=== PATIENT | female | born 1935 | race Caucasian/White ===

== ENCOUNTER 2016-12-11 09:16 | Emergency (ER) | payer MEDICARE, BC ==
--- NOTE | ~2016-12-11 | ER ---
PATIENT'S NAME: POLLY [facility] AGE: 81 Y [address] ROOM: [place] [address] LOCATION: [facility] ADMIT DATE: 12/11/2016 ER/Outpatient Report DISCHARGE DATE: 12/11/2016 FAMILY PHYSICIAN: Coleman Yeh MD ATTENDING PHYSICIAN: David Muse CHIEF COMPLAINT: Balance issues. HISTORY OF PRESENT ILLNESS: Ms. Matias presents with her sister and daughter. She has noted to have been having more balance issues of late. Last night, she was trying to sit down on bed after using the restroom, and her feet continued to slide out from under her. She was sitting on the edge of the bed causing her to slowly sink to the floor. She denies any pain or difficulty walking after that. She has no complaints at this time. She is not concerned. She came in only because when her family urged her to contact the clinic, they recommended ER evaluation. No other concerns at this time, and the patient wants nothing done. PAST MEDICAL HISTORY: Documented on the record and reviewed by me. SOCIAL HISTORY: Documented on the record and reviewed by me. MEDICATIONS: Documented on the record and reviewed by me. ALLERGIES: DOCUMENTED ON THE RECORD AND REVIEWED BY ME. REVIEW OF SYSTEMS: All systems are reviewed and negative, except as noted in the HPI. PHYSICAL EXAMINATION: VITAL SIGNS: Blood pressure 176/79, pulse 91, respiratory rate is 20, temperature 97.4, and SpO2 is 95% on room air. Pain 0/10. GENERAL: Age-appropriate female. Appears in good spirit. Sitting upright on the exam table. No apparent pain or distress. NEUROLOGIC: Awake and alert. GCS is 15. No focal deficits. No asymmetry. No appreciable gait abnormalities. No balance or disequilibrium issues detectable on exam. No nystagmus or vertical skew on exam. No difficulties with rapid alternating movements. Stroke score is zero. HEENT: Normocephalic, atraumatic. Eyes are PERRL. Oropharynx is clear. [facility] 81 Y [address] ROOM: [place] [address] LOCATION: [facility] ADMIT DATE: 12/11/2016 ER/Outpatient Report DISCHARGE DATE: 12/11/2016 FAMILY PHYSICIAN: Coleman Yeh MD ATTENDING PHYSICIAN: David Muse NECK: Supple. Trachea is midline. CHEST: Heart is regular rate and rhythm with no murmurs. LUNGS: Clear to auscultation bilateral. No rhonchi, wheezes, or rales. ABDOMEN: Soft, nontender, and nondistended. No rebound or guarding. EXTREMITIES: Warm and well perfused. No deformities or edema. SKIN: Clean dry and intact. LABORATORY DATA AND X-RAYS: Urinalysis with no evidence of infection. Glucosuria 1000 on dip. IMPRESSION: 1. Glucosuria, secondary to diabetes. 2. Elevated blood pressures, history of hypertension. 3. Possible disequilibrium. EMERGENCY DEPARTMENT COURSE: The patient seen and evaluated. No evidence of stroke or intracranial hemorrhage. Lungs are clear. No history consistent with pneumonia or other pulmonary process. Urinalysis was obtained for cold infection. It was not concerning. Based on her findings, I am concerned that she may be having uncontrolled diabetes in conjunction with her known neuropathy which may be contributing to this. In any case, the patient wants no further workup at this time. I have contacted Dr. Yeh, the patient's primary care physician, and they will contact her to see her sooner in clinic. DAVID MUSE MD JH/modl /[id number] d: 12/11/16 1950 t: 12/15/16 0710, OUTPATIENT REPORT
[2016-12-11 10:13] LABS: BILIRUBIN URINE NEGATIVE (NEGATIVE); BLOOD URINE NEGATIVE /UL (NEGATIVE); COLOR URINE YELLOW (YELLOW); GLUCOSE URINE 1000 mg/dL (NEGATIVE); KETONE URINE NEGATIVE (NEGATIVE); LEUKOCYTES URINE NEGATIVE /UL (NEGATIVE); NITRITE URINE NEGATIVE (NEGATIVE); PH URINE 6.5 (4.0-8.0); PROTEIN URINE 30 mg/dL (NEGATIVE); SPEC GRAVITY URINE 1.005 (1.003-1.035); TURBIDITY URINE CLEAR (CLEAR); UROBILINOGEN URINE NORMAL (NORMAL)
[2016-12-11 10:25] LABS: BACTERIA URINE NEGATIVE (NEGATIVE); EPITHELIAL URINE RARE #/HPF (NEGATIVE); RBC URINE NEGATIVE #/HPF (NEGATIVE); WBC URINE RARE #/HPF (NEGATIVE)
== END 2016-12-11 10:41 ==
LOC: GMED 09:16
PROVIDERS: Emergency Medicine
DX: E11.9 Type 2 diabetes mellitus without complications (principal); I10 Essential (primary) hypertension; Z88.5 Allergy status to narcotic agent

== ENCOUNTER 2017-02-10 09:10 | Inpatient (IN) | payer MEDICARE, BC ==
[~2017-02-10] VITALS: Ht 154.9 cm; Wt 61.3 kg
--- NOTE | ~2017-02-10 | OR ---
PATIENT'S NAME: POLLY [facility] AGE: 81 Y [address] ROOM: [place] [id number] LOCATION: [facility] ADMIT DATE: 02/10/2017 OR/Procedure Report DISCHARGE DATE: FAMILY PHYSICIAN: Coleman Yeh MD ATTENDING PHYSICIAN: MAICO KAHN SURGEON: Parth Fitzpatrick MD VETERINARY TECHNOLOGIST: DATE OF PROCEDURE: 02/10/2017 ANESTHESIOLOGIST: Amando Stuart MD ANESTHESIA: General. COMPLICATIONS: None. ESTIMATED BLOOD LOSS: Minimal. PREOPERATIVE DIAGNOSIS: Right-sided acute on chronic subdural hematoma with significant mass effect, left-sided body weakness. POSTOPERATIVE DIAGNOSIS: Right-sided acute on chronic subdural hematoma with significant mass effect, left-sided body weakness. PROCEDURE: Right-sided jon hole and drainage of acute on chronic subdural hematoma. CLINICAL HISTORY: The patient is a 81-year-old female patient who has been falling frequently lately, was diagnosed on noncontrast CT head to have a large right-sided acute on chronic subdural hematoma with significant mass effect and midline shift. She was also found to have a small left-sided chronic subdural hematoma. I saw the patient in the emergency and her examination was remarkable for moderate to severe left upper extremity weakness, severe left lower extremity weakness. I recommended the above mentioned surgery to the patient and her family to try to decompress the brain and hopefully help with neurologic recovery. I discussed the procedure itself, the benefits, and all the risks associated with it. I also discussed hospital stay and recovery. 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 I indicated that cervical spine MRI is needed postoperatively to better assess the cervical spinal canal. The patient was interested in proceeding with surgery so she was brought in for the operation. DESCRIPTION OF PROCEDURE: The patient was seen in the preoperative care unit and the correct side was marked. Then, she was transferred to the main PATIENT'S NAME: PO[facility] AGE: 81 Y [address] ROOM: [address] [address] LOCATION: [facility] ADMIT DATE: 02/10/2017 OR/Procedure Report DISCHARGE DATE: FAMILY PHYSICIAN: Coleman Yeh MD ATTENDING PHYSICIAN: MAICO KAHN operating theater, was given general anesthetic, and underwent endotracheal intubation without complications. Preoperative antibiotics were given. Willingham catheter, calf compressors, and an arterial line were used throughout the procedure. The patient was positioned supine on the table and the patient's head was placed on foam. The patient's head was turned to the left side to expose the right hemicranium. Then, I marked 2 incisions along the superior temporal line, 1 anterior and 1 posterior. The hair overlying the incisions was clipped off. The surgical site was then prepped and draped as per usual. The proposed skin incisions were infiltrated with 0.25% Marcaine with epinephrine. Skin was sharply opened down to the bone. Then, a high-speed [employer] drill was brought in and 2 jon holes were fashioned to the dura. The bone was waxed and the dura was coagulated. Then, the dura was incised and immediately, acute on chronic subdural fluid escaped under moderate to high pressure. Dural leaflets were coagulated. Then, the subdural space was copiously irrigated with warm Plasma-Lyte until the return was clear. I was satisfied with the evacuation and had no complications, so I proceeded to closure. Bleeding from the skin was controlled with bipolar. Then, the incisions were closed with 2-0 Vicryl to the galea and jes for the skin. Sterile dressing was applied. At the end of the operation, the instrument and sponge counts were correct. The patient tolerated the operation without any complications. PARTH FITZPATRICK MD AB/modl /[id number] CC: MD Sharon Muñiz MD Jason Shuda, MD d: 02/10/179 t: 02/11/179, OPERATIVE SUMMARY
--- NOTE | ~2017-02-10 | ER ---
PATIENT'S NAME: POLLY [facility] AGE: 81 Y [address] ROOM: [address] [address] LOCATION: [facility] ADMIT DATE: 02/10/2017 ER/Outpatient Report DISCHARGE DATE: FAMILY PHYSICIAN: Coleman Yeh MD ATTENDING PHYSICIAN: MAICO SANDY Time of Arrival: 0910 hours. Time Seen: 0915 hours. IDENTIFICATION: A 81-year-old female. CHIEF COMPLAINT: Fall. HISTORY OF PRESENT ILLNESS: The patient is a 81-year-old female who states that she has been having some balance problems that have been worse for the last couple of days. They date back about 2-1/2 months and she has been going to physical therapy for this. She actually saw Dr. Francis in the clinic yesterday, and then last evening fell into the bathtub, came into the emergency room, was clinically evaluated, and no imaging was done at that time. Today, she said her legs are working like they should, left greater than right. She normally walks without a walker around the home. Her niece lives with her. She has no numbness. She does have a slight headache. ALLERGIES: CODEINE. CURRENT MEDICATIONS: 1. Prilosec 40 mg daily. 2. Xalatan eye drops 0.005% one drop to each eye at h.s. 3. Glucophage 500 mg ER 2 tabs b.i.d. 4. Alphagan eyedrops 0.1% one drop to right eye b.i.d. 5. Gabapentin 800 mg at h.s. 6. Lovastatin 40 mg at h.s. 7. Meloxicam 7.5 mg b.i.d. 8. Amlodipine 2.5 mg q.a.m. 9. Flexeril 10 mg p.r.n. 10. Losartan 50 mg q.a.m. 11. Fish oil 1200 mg daily. 12. Voltaren gel 1%. 13. Lyrica 50 mg b.i.d. 14. Calcium, magnesium, zinc, vitamin D b.i.d. 15. Potassium gluconate 550 mg q.a.m. [facility] 81 [facility] [address] ROOM: [facility] [place], [place] [address] LOCATION: [facility] ADMIT DATE: 02/10/2017 ER/Outpatient Report DISCHARGE DATE: FAMILY PHYSICIAN: Coleman Yeh MD ATTENDING PHYSICIAN: MAICO SANDY 16. Hydromorphone 2 mg tablets. MEDICAL PROBLEMS: Diabetes mellitus type 2, neuropathy, hypertension, arthritis, gastroesophageal reflux disease, glaucoma, and hyperlipidemia. PRIOR SURGERIES: Carpal tunnel surgery. SOCIAL HISTORY: The patient lives here in [place]. Her niece lives with her. Tobacco use, 5 cigarettes per day. Alcohol use, denies. Drug use, denies. REVIEW OF SYSTEMS: The patient does have some chronic neck pain. All systems reviewed and negative other than what is noted in the HPI. PHYSICAL EXAMINATION: VITAL SIGNS: Weight 60.5 kg, pulse 99, respirations 18, temperature 97.2, saturations 96%, and blood pressure 255/119. GENERAL: A 81-year-old female, in mild distress, rating her pain 6/10. HEENT: Head: Normocephalic, atraumatic. Eyes: Pupils equal and reactive to light and accommodation. Extraocular movements intact. Nose: Mucosa pink. No lesions. Mouth: No lesions. Pharynx benign. NECK: Supple. No lymphadenopathy. No nuchal rigidity. LUNGS: Clear to auscultation. Breath sounds are equal. HEART: Regular rate and rhythm. No murmur, rub, or gallop. ABDOMEN: Bowel sounds present. Soft, nondistended, nontender. SKIN: [place], warm, and dry. No lesions or rashes noted. NEUROLOGIC: The patient is alert and oriented x4. Cranial nerves 2 through 12 grossly intact. Motor strength, upper extremities 5/5 and lower extremities 3/5. No sensory deficit. She has more strength in the right lower extremity than the left lower extremity. DIAGNOSTIC DATA: Head CT: Moderate-sized right subdural hematoma; a small left frontal subdural blood collection, subacute and acute blood; mass effect at the right cerebral hemisphere and left frontal lobe with sulcal effacement and slight midline shift toward the left. No skull fracture identified. Cervical spine CT: No acute fracture identified, degenerative changes, and posterior osteophyte formation. Chest x-ray one view: No acute process. Pending Radiology over-read. EKG: Sinus rhythm at 94 beats per minute. No acute ST elevation or depression. Right bundle branch block present. No previous EKG available for comparison. PATIENT'S NAME: CARINA MATIAS [facility] AGE: 81 Y [address] ROOM: [id number] [place], [place] [address] LOCATION: [facility] ADMIT DATE: 02/10/2017 ER/Outpatient Report DISCHARGE DATE: FAMILY PHYSICIAN: Coleman Yeh MD ATTENDING PHYSICIAN: MAICO SANDY Hemoglobin 11.7, hematocrit 36.7, platelets 250, and white count 10.6 with a normal differential. INR 0.94. Sodium 136, potassium 4.1, chloride 105, CO2 of 24, BUN 12, creatinine 0.8, and blood sugar 192. Liver enzymes normal. CK 415, CK-MB 6.4, troponin I 0.227. CRP 1.05. TSH 3.250. Sedimentation rate 45. UA negative. IMPRESSION: 1. Significant bilateral subdural, right greater than left, with midline shift subacute and acute blood. Dr. Fitzpatrick has been consulted and evaluated the patient in the emergency room. She is n.p.o., had a few sips of coffee at 8:15 a.m. She will remain n.p.o. and surgery is planned for 2:[address] Yeh was notified and Dr. Sandy evaluated the patient in the emergency room and planned for admission to the intensive care unit. 2. Chronic neck pain with myelopathy. MRI will be scheduled tomorrow per Dr. Fitzpatrick. 3. Uncontrolled hypertension. The patient's blood pressure remained greater than 200 systolic, so she was given labetalol 10 mg IV push over 2 minutes with slight improvement of her blood pressure to 162/68 and 180/81. Actually, the labetalol was repeated for a total of 3 doses. 4. Right bundle branch block. 5. Hqp-RH-asatnolfe myocardial infarction with elevated cardiac enzymes. The patient has no chest pain. No history of coronary artery disease. 6. Hyperlipidemia. 7. Glaucoma. 8. Gastroesophageal reflux disease. 9. Arthritis. PLAN: Admission to ICU per Dr. Sandy, hospitalist, with Dr. Fitzpatrick, consulting. The patient arrived to the emergency room at 09:10 a.m., was taken to ICU at 12:24 p.m., and 45 minutes of critical care was provided with this patient. MD UMBERTO PALOMO/cortes /[id number] d: 02/10/172124 t: 02/18/172030, OUTPATIENT REPORT
--- NOTE | ~2017-02-10 | DS ---
PATIENT'S NAME: POLLY [facility] AGE: 81 Y [address] ROOM: [address] [address] LOCATION: [facility] ADMIT DATE: 02/10/2017 Discharge Summary DISCHARGE DATE: 02/15/2017 FAMILY PHYSICIAN: Coleman Yeh MD ATTENDING PHYSICIAN: Mark Sandy PRIMARY DIAGNOSES: 1. Right subdural hematoma, acute on chronic, status post jon hole. 2. Left subdural hematoma, chronic. 3. Cervical spinal stenosis. 4. Chronic gait instability. 5. Essential hypertension. 6. Diabetes mellitus type 2. 7. Elevated cardiac enzymes. 8. Chronic low back pain. 9. Acute encephalopathy. OPERATIONS AND PROCEDURES: CT scan of the brain obtained on 02/10/2017 demonstrated moderate-sized right subdural hematoma and left subdural hematoma. CT scan of the C-spine on 02/10/2017 negative for fracture but significant for degenerative change. CT scan of the brain on 02/11/2017 showed improvement in appearance of the right frontal subdural hematoma following jon hole. MRI scan of the C-spine obtained on 02/12/2017 demonstrated degenerative disk disease with moderate central canal stenosis at C4 and C5 and C5 and C6 with foraminal stenosis at multiple levels. Jon hole on the right with drainage of [id number] subdural hematoma was performed by Dr. Fitzpatrick on 02/10/2017. HISTORY OF PRESENTING ILLNESS AND REASON FOR ADMISSION: Please refer to the H and P dictated on 02/10/2017. HOSPITAL COURSE: The patient was admitted to the hospital as noted above with presumptive diagnosis of [id number] right subdural hematoma. She was seen and evaluated in coordination with Neurosurgery. Dr. Fitzpatrick recommended to proceed with right jon hole placement. This was performed as outlined above without any significant complications. Postoperatively, she was transferred to the [facility]. She received supportive cares and some restorative cares as well. Her clinical progress was good. She did develop some encephalopathy and required some adjustment to her regimen. The encephalopathy resolved and her blood pressures improved. She continued to engage in physical therapy and occupational therapy and made good progress. Ultimately, it was felt she would benefit from general inpatient rehab, and arrangements were made for her PATIENT'S NAME: POLLY [facility] AGE: 81 Y [address] [id number] [address] LOCATION: [facility] ADMIT DATE: 02/10/2017 Discharge Summary DISCHARGE DATE: 02/15/2017 FAMILY PHYSICIAN: Coleman Yeh MD ATTENDING PHYSICIAN: Mark Sandy to be transferred there on 02/15/2017. DISCHARGE INSTRUCTIONS: DIET: As tolerated. ACTIVITY: As tolerated. MEDICATIONS: 1. Amlodipine 10 mg p.o. daily. 2. Alphagan ophthalmic drops 1 drop to the right eye b.i.d. 3. Calcium carbonate 500 mg p.o. b.i.d. 4. Vitamin D3, 1000 units p.o. b.i.d. 5. Gabapentin 800 mg p.o. q.h.s. 6. Insulin NovoLog per sliding scale. 7. Xalatan ophthalmic drops 1 drop each eye at h.s. 8. Losartan 100 mg p.o. daily. 9. Lovastatin 40 mg p.o. q.h.s. 10. Magnesium oxide 400 mg p.o. b.i.d. 11. Metoprolol 25 mg p.o. b.i.d. 12. Nicotine 21 mg, apply and change daily. 13. Protonix 40 mg p.o. daily. 14. MiraLax 17 g p.o. b.i.d. 15. Acetaminophen 650 mg p.o. q.4 hours p.r.n. 16. Acetaminophen 650 mg SD q.4 hours p.r.n. 17. Dextrose 25 mg IV p.r.n. hypoglycemia. 18. Glucagon 1 mg subcu daily p.r.n. hypoglycemia. 19. Glucose tablets 16 g p.o. daily p.r.n. hypoglycemia. 20. Dilaudid 2 mg to 4 mg p.o. q.4 hours p.r.n. pain. 21. Lidocaine topical p.r.n. IV starts. FOLLOWUP: She will have followup on general inpatient rehab by Dr. Fitzpatrick, Neurosurgery; the hospitalist team; and Dr. Hurtado. CONDITION ON DISCHARGE: Fair. TIME SPENT: Total time spent on discharge process 45 minutes. MD LENNY SWANSON/cortes PATIENT'S NAME: CARINA MATIAS [facility] AGE: 81 Y [address] ROOM: [place] [address] LOCATION: [facility] ADMIT DATE: 02/10/2017 Discharge Summary DISCHARGE DATE: 02/15/2017 FAMILY PHYSICIAN: Coleman Yeh MD ATTENDING PHYSICIAN: Mark Sandy /[id number] d: 02/16/17 0329 t: 02/25/17 1720, DISCHARGE SUMMARY
--- NOTE | ~2017-02-10 | HP ---
PATIENT'S NAME: POLLY [facility] AGE: 81 Y [address] ROOM: [place] [address] LOCATION: GICU ADMIT DATE: 02/10/2017 History & Physical DISCHARGE DATE: FAMILY PHYSICIAN: Coleman Yeh MD ATTENDING PHYSICIAN: MAICO KAHN DATE OF SERVICE: 02/10/2017 CHIEF COMPLAINT: Frequent falls and balance issues. HISTORY OF PRESENT ILLNESS: This is a very pleasant, 81-year-old female, who suffered an additional fall today on a history of multiple recent recurrent falls. Today's fall was complicated by head trauma on her bathtub, fell and hit the back of her head and neck. Denies loss of consciousness. Denies preceding symptoms leading up to fall aside from known balance issues which she describes to be ongoing leg weakness. The patient is followed by her PCP as well as Physical Therapy for ongoing efforts at strengthening and balance training. The patient was seen just earlier this morning in the emergency department after her last fall, exam felt at that time to be largely unremarkable and imaging was not pursued. The patient returned home only to suffer a subsequent fall and does indeed notice the symptoms as above, now most predominantly left- sided weakness. 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 The patient does not endorse any recent fevers, chills, nausea, vomiting, chest pain, shortness of breath, palpitations, abdominal pain, or leg swelling. She does note mild recent intermittent constipation, but otherwise no other significant symptoms aside from her ongoing balance issues. The patient was seen with family at bedside. Per report no other additional questions. PAST MEDICAL HISTORY: 1. Diabetes mellitus type 2, diet controlled. 2. Essential hypertension. 3. Hyperlipidemia. 4. Glaucoma. 5. Peripheral neuropathy likely associated with diabetes. 6. Chronic back pain. SURGICAL HISTORY: Hysterectomy in 1982. FAMILY HISTORY: PATIENT'S NAME: POLLY [facility] AGE: 81 Y [address] ROOM: [place] [address] LOCATION: [facility] ADMIT DATE: 02/10/2017 History & Physical DISCHARGE DATE: FAMILY PHYSICIAN: Coleman Yeh MD ATTENDING PHYSICIAN: MAICO KAHN Completely reviewed. Father of myocardial infarction, also with a history of stroke. Mother with also myocardial infarction leading to , brother had brain cancer of some sort. SOCIAL HISTORY: The patient is a 5-cigarette per day smoker and has been a smoker for 60+ years, but denies alcohol or other drug use. ALLERGIES: TO CODEINE. MEDICATIONS: 1. Losartan 50 mg q.a.m. 2. Amlodipine 2.5 mg q.a.m. 3. Flexeril 10 mg p.o. p.r.n. back pain. 4. Fish oil. 5. Voltaren gel. 6. Lyrica 50 mg b.i.d. 7. Prilosec 40 mg p.o. daily. 8. Latanoprost 0.005% bilateral eye drops q.h.s. 9. Alphagan bilateral eye drops b.i.d. 10. Gabapentin 800 mg q.h.s. 11. Lovastatin 40 mg q.h.s. 12. Meloxicam 7.5 mg b.i.d. REVIEW OF SYSTEMS: Complete review of systems able to be performed and is negative except as noted above in HPI. PHYSICAL EXAMINATION: VITAL SIGNS: At time of interaction, vital signs notable for blood pressure 189/90, pulse 99, respirations 18, temp 97.2. GENERAL: Alert and oriented, in no apparent distress. Lying comfortably in ED bed. HEAD: Normocephalic, atraumatic. HEENT: No nystagmus. Pupils equal, round, reactive to light. Extraocular muscles intact. Mucous membranes dry. CARDIOVASCULAR: Regular rate and rhythm. No murmurs, rubs, or gallops appreciated. 2+ pulses appreciated bilaterally including radial and dorsalis pedis. Respirations clear to auscultation bilaterally. Normal effort. Saturating well on room air. ABDOMEN: Soft, nontender, nondistended. Normoactive bowel sounds. EXTREMITIES: No edema appreciated. No lesions also noted. NEUROLOGIC: The patient is alert and oriented. Cooperative and pleasant. She follows commands well. No appreciable speech deficits. The patient is PATIENT'S NAME: CARINA MATIAS [facility] AGE: 81 Y [address] ROOM: [place] [id number] LOCATION: [facility] ADMIT DATE: 02/10/2017 History & Physical DISCHARGE DATE: FAMILY PHYSICIAN: Coleman Yeh MD ATTENDING PHYSICIAN: MAICO KAHN guarding her left limb just a bit and this limb is somewhat rigid as well. 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 Lower extremity evaluation notable for 3/5 strength of left hip, 5/5 strength on right hip. Left foot unable to dorsiflex, but does plantar flex. Right lower extremity also normal. LABS AND IMAGING: CBC notable for WBC 10.6, hemoglobin 11.7, platelets 250. CMP notable for sodium 136, potassium 4.1, chloride 105, bicarb 24, BUN 12, creatinine 0.8, glucose 192, calcium 9.4. LFTs normal. Troponin 0.227. CK-MB 6.4. EKG, prior compare to, notes a right bundle branch block without current acute ischemic changes otherwise. TSH is 3.25. Chest x-ray is pending. CT of head and neck notes, per verbal report. Bilateral acute and subacute subdural hemorrhage and anterior region with associated midline shift. C-spine also does note some degenerative changes and possible myelopathy. ASSESSMENT: 1. Intracranial hemorrhage, acute/subacute subdural hemorrhage bilaterally with midline shift. Dr. Fitzpatrick will plan for possible jon holes today. We will maintain n.p.o. We will plan to target systolic blood pressure 160 or less. Discussed the patient [id number] with Dr. Fitzpatrick and will hold off on nicardipine drip to attain this blood pressure currently in attempt to manage with labetalol and hydralazine. The rest of orders following intracerebral hemorrhage order set. We will gently rehydrate with normal saline 50 mL/h. 2. Hypertensive emergency. Blood pressure as high as 255/119 on arrival in the setting of intercerebral hemorrhage. Improved currently following labetalol dosing in the emergency department, will continue, goal as above and per Neurosurgery. 3. Elevated troponin. Mild without prior EKG available. Notable for right bundle-branch block without other ischemic changes. The patient is without chest pain, or other cardiac symptoms currently though in the setting of an elevated troponin, will trend to peak and monitor for cardiac symptoms as well as monitor on telemetry. 4. Glaucoma. Continue home medications. 5. Diabetes mellitus. Diet controlled. 6. Peripheral neuropathy, given ongoing difficulty with falls and balance at home we will hold her home Lyrica and gabapentin. 7. Chronic back pain. We will hold home Flexeril as well as NSAIDs including meloxicam and Voltaren gel given her plans for surgery. CODE STATUS: The patient is amenable to be full code status perioperatively, however, does report that her wishes long-term would be for DNR and DNI status. PATIENT'S NAME: CARINA MATIAS [facility] AGE: 81 Y [address] ROOM: [place] [address] LOCATION: [facility] ADMIT DATE: 02/10/2017 History & Physical DISCHARGE DATE: FAMILY PHYSICIAN: Coleman Yeh MD ATTENDING PHYSICIAN: MAICO KAHN TIME SPENT: On date of admission including gjsy-ca-hbiw encounter and discussion with consultants is 40 minutes. This is a critical care time. MD ELAINA CLIFTON/modl /[id number] D: 712 T: 809 HISTORY & PHYSICAL
--- NOTE | ~2017-02-10 | CON ---
PATIENT'S NAME: POLLY [facility] AGE: 81 Y [address] ROOM: [place] [address] LOCATION: GICU ADMIT DATE: 02/10/2017 Consultation DISCHARGE DATE: FAMILY PHYSICIAN: Coleman Yeh MD ATTENDING PHYSICIAN: MAICO KAHN DATE OF CONSULTATION: 02/10/2017 REFERRING PHYSICIAN: PO MCCALL MD CHIEF COMPLAINT: Large right-sided acute on chronic subdural hematoma, left-sided body weakness, small left-sided chronic subdural hematoma. HISTORY OF PRESENT ILLNESS: The patient is a 81-year-old female patient who was seen in Emergency today for assessment and management of recurrent falls and left-sided body weakness. She was assessed by the emergency physician with a noncontrast CT head that showed evidence of very large right-sided acute on chronic subdural hematoma with significant mass effect. It also showed evidence of a small left-sided chronic subdural hematoma with minimal mass effect. I was consulted to assess the patient with regard to that. I met the patient in Emergency. I met her in the presence of her family. They all indicated that lately, her gait has been unsteady, and she has been falling frequently. The last fall was this morning in the bathroom. The patient also indicated that she has noticed weakness in her left hand and left leg. She also reported some morning headaches. She denied seizures, fever, or chills. She denied chest pain. The patient denied visual disturbances. She denied changes in her bladder and bowel function. PAST MEDICAL HISTORY: Diabetes, hypertension, hyperlipidemia, glaucoma surgery, peripheral neuropathy, back pain, and hysterectomy. MEDICATIONS: Listed in the patient's chart. ALLERGIES: LISTED IN THE PATIENT'S CHART. REVIEW OF SYSTEMS: All points of review of systems were asked about. Pertinent positives are mentioned in the HPI. SOCIAL HISTORY: PATIENT'S NAME: POLLY [facility] AGE: 81 Y [address] ROOM: [place] [address] LOCATION: GICU ADMIT DATE: 02/10/2017 Consultation DISCHARGE DATE: FAMILY PHYSICIAN: Coleman Yeh MD ATTENDING PHYSICIAN: MAICO KAHN She is an active smoker, 5 cigarettes a day. She denies alcohol drinking. FAMILY HISTORY: Her father of myocardial infarction. Her mother also of myocardial infarction complications. PHYSICAL EXAMINATION: GENERAL: The patient was cooperative and pleasant. VITAL SIGNS: Systolic blood pressure was over 150 at the time of evaluation. HEAD: Atraumatic. Sclerae examination was normal bilaterally. NECK: No tenderness to palpation. Neck range of motion was limited in all directions, and it induced some neck pain. No palpable masses. LYMPHATIC: No cervical lymphadenopathy. MOUTH AND THROAT: She had dry mucosa. The uvula elevated in the midline. RESPIRATORY: She was not in any respiratory distress. CARDIOVASCULAR: She had palpable pulses in the upper extremities bilaterally. SKIN: No evidence of skin rash. GAIT: Not done. BACK: Not done. MUSCULOSKELETAL: She had pain during right shoulder manipulation. She indicated that she has rotator cuff syndrome. NEUROLOGIC: She was alert and oriented to time, place, and person. She named 3/3 objects and followed 1- and 2-step commands. Pupils were 4 mm on the right and 3 mm on the left, and both were reactive to light. Face was symmetric. Motor examination showed uutvblio-cq-[id number] left upper extremity weakness, grade 2/3. It also showed evidence of severe left lower extremity weakness, both proximal and distal, grade 1-2/5. Motor examination in the right upper and lower extremities was unremarkable. INVESTIGATIONS: Noncontrast CT head done on February 10, 2017, which I personally reviewed. It showed evidence of a very large right-sided acute on chronic subdural hematoma with significant mass effect in the right cerebral hemisphere and midline shift. It also showed evidence of a small left frontoparietal chronic subdural hematoma with minimal mass effect. Cervical spine CT scan without contrast done on February 10, 2017, which I personally reviewed. It showed evidence of diffuse osteopenia/osteoporosis. It showed reversal of the normal cervical lordosis due to multilevel degenerative disk disease. 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 IMPRESSION: This 81-year-old female patient, who has been falling frequently lately, is PATIENT'S NAME: CARINA MATIAS [facility] AGE: 81 Y [address] ROOM: [place] [address] LOCATION: GICU ADMIT DATE: 02/10/2017 Consultation DISCHARGE DATE: FAMILY PHYSICIAN: Coleman Yeh MD ATTENDING PHYSICIAN: MAICO KAHN diagnosed with very large right-sided acute on chronic subdural hematoma and small left-sided chronic subdural hematoma. The patient is symptomatic, and her neurological examination is remarkable for qxvsvrqq-pv-dcahkc weakness in the left upper and lower extremities. Her cervical spine CT scan also showed evidence of ossification of the posterior longitudinal ligament at multiple levels, especially at C4-5 and C5-6 resulting in moderate canal stenosis. PLAN: 1. Admission to the hospital under hospitalist. 2. I recommended right-sided jon holes and evacuation of acute on chronic subdural hematoma. I recommended that be done today urgently. 3. Cervical spine MRI postoperatively to assess for cervical spinal stenosis. 4. Blood pressure control per hospitalist. I discussed the imaging findings with the patient and her family and explained the abnormalities seen. I clearly indicated that the patient is symptomatic from the large right-sided acute on chronic subdural hematoma. Given that, I recommended right-sided jon holes and drainage of the hematoma to be done urgently. I discussed the procedure itself, the benefits, and all the risks associated with it. I also discussed hospital stay and recovery. I also discussed the issue of cervical ossification of the posterior longitudinal ligament and spinal stenosis. I clearly indicated that cervical spine MRI is needed to further investigate that, and that will be done postoperatively. The patient and her family were interested in proceeding with surgery. The patient is scheduled for surgery later today. It was a pleasure taking care of this patient, and thank you for having us involved. MD REED MOHAN/cortes /[id number] CC: MD Sharon Lee MD Troy L Potthoff, MD d: 02/11/17 1630 t: 02/14/17 1123, CONSULTATION REPORT
--- NOTE | ~2017-02-10 | CON ---
PATIENT'S NAME: POLLY [facility] AGE: 81 Y [address] ROOM: [address] [address] LOCATION: GICU ADMIT DATE: 02/10/2017 Consultation DISCHARGE DATE: FAMILY PHYSICIAN: Coleman Yeh MD ATTENDING PHYSICIAN: MAICO KAHN REFERRING PHYSICIAN: PO FITZPATRICK MD Consult for Dr. Fitzpatrick. HISTORY OF PRESENT ILLNESS: This 81-year-old lady is referred for rehab/GIRP evaluation and admission. She is status post right-sided acute on chronic subdural hematoma with significant mass effect with left-sided body weakness, status post right-sided bur hole and drainage of acute on chronic subdural hematoma done on 02/10/2017. This was apparently as per history secondary to a falling incident. She slipped in the bathroom and hit her head. Details all of the above incident are on records on history and physical. She is now doing well, alert, oriented, able to comprehend, express. Her voice is clear and not wet. Cranial nerves 2 through 12 are within normal limits. She has slight weakness on the left side upper and lower extremity with decreased coordination. She has may be very little if any neglect of the distant left temporal visual field. PAST HISTORY OF SIGNIFICANCE: 1. Diabetes type 2, diet controlled as per history. 2. Hypertension. 3. Glaucoma. 4. Dyslipidemia. 5. Neuropathy. 6. Chronic low back pain. 7. Status post hysterectomy in 1982. PHYSICAL EXAMINATION: NEUROLOGIC: She is at the present time able to move left upper and lower extremity with muscle strength about 4/5 with decreased endurance. Visual cut is very little, if any, at the present time with some neglect of the distal temporal visual field. No facial droop at the present time. Tongue and soft palate are moving symmetrical. Deep tendon reflexes are 1+ throughout. Bowels are good. Bladder is well controlled. VITAL SIGNS: Blood pressure 196/76, temperature 98.2, pulse 73, respirations 16. She is 5 feet 1 inch tall and weighs 61.4 kg. MEDICATIONS: She is on the following medication: 1. Metoprolol. PATIENT'S NAME: POLLY [facility] AGE: 81 Y [address] ROOM: [id number] [place], [place] [id number] LOCATION: [facility] ADMIT DATE: 02/10/2017 Consultation DISCHARGE DATE: FAMILY PHYSICIAN: Coleman Yeh MD ATTENDING PHYSICIAN: MAICO KAHN 2. Norvasc. 3. Cozaar. 4. Protonix. 5. NaCl 0.9%. 6. Cardizem. 7. Labetalol. 8. Mag-Ox. 9. Mevacor. 10. Xalatan. 11. Gabapentin. 12. Vitamin D3. 13. Os-Wes. 14. Alphagan. 15. Glucagon. 16. Glucose. 17. Dextrose. 18. Aspart insulin, mild scale. 19. Dilaudid. 20. Reglan. 21. Apresoline. 22. Tylenol. 23. Zofran. 24. Ancef. 25. Lopressor. 26. Fentanyl. 27. Cefazolin. ASSESSMENT AND PLAN: I feel this lady has done well, but she in my opinion will benefit from intensive rehabilitation. I will continue her on PT, OT, and Speech which already have been initiated. I think she will need about maybe 10 days to 2 weeks aiming to discharge her at modified independence and follow on an outpatient basis. All the above was explained to her in detail. She verbalized understanding and agreement. Thank you for this referral. I will take her if she is okayed. BILL BOOTH MD WMChantel/modl PATIENT'S NAME: CARINA MATIAS [facility] AGE: 81 Y [address] ROOM: [id number], [place] [address] LOCATION: [facility] ADMIT DATE: 02/10/2017 Consultation DISCHARGE DATE: FAMILY PHYSICIAN: Coleman Yeh MD ATTENDING PHYSICIAN: MAICO KAHN /[id number] d: 02/11/179 t: 02/12/17 0707, CONSULTATION REPORT
[2017-02-10 09:48] LABS: BASOPHIL % 0.4 %; EOSINOPHIL # 0.1 K/uL (0.0-0.5); EOSINOPHIL % 0.6 %; HEMATOCRIT 36.7 % (33.0-46.0); HEMOGLOBIN 11.7 g/dL (10.0-15.0); IMMATURE GRANULOCYTE % 0.4 %; LYMPHOCYTE # 1.2 K/uL (0.8-4.0); LYMPHOCYTE % 11.5 %; MCH 28.3 pg (27.0-34.0); MCHC 31.9 gm/dL (32.0-36.5); MCV 88.9 fl (83.0-98.0); MONOCYTE # 0.5 K/uL (0.0-1.0); MONOCYTE % 4.6 %; NEUTROPHIL # (ANC) 8.7 K/uL (1.8-7.8); NEUTROPHIL % 82.5 %; NRBC % 0 /100WBC (0-0.00); PLATELET COUNT 250 K/uL (150-450); RBC 4.13 M/uL (3.50-5.50); WBC 10.6 K/uL (4.0-11.0)
[2017-02-10 09:53] LABS: BILIRUBIN URINE NEGATIVE (NEGATIVE); BLOOD URINE 10 /UL (NEGATIVE); COLOR URINE STRAW (YELLOW); GLUCOSE URINE 100 mg/dL (NEGATIVE); KETONE URINE NEGATIVE (NEGATIVE); LEUKOCYTES URINE NEGATIVE /UL (NEGATIVE); NITRITE URINE NEGATIVE (NEGATIVE); PROTEIN URINE 30 mg/dL (NEGATIVE); TURBIDITY URINE CLEAR (CLEAR); UROBILINOGEN URINE NORMAL (NORMAL)
[2017-02-10 10:00] LABS: BACTERIA URINE NEGATIVE (NEGATIVE); EPITHELIAL URINE NEGATIVE #/HPF (NEGATIVE); RBC URINE NEGATIVE #/HPF (NEGATIVE); WBC URINE RARE #/HPF (NEGATIVE)
[2017-02-10 10:02] LABS: INR - (THERAPEUTIC) 0.94 (0.92-1.07); PROTIME 9.9 SECONDS (9.8-11.4); PTT 26 SECONDS (25-32)
[2017-02-10 10:14] LABS: ALBUMIN 3.5 gm/dL (3.5-5.0); ANION GAP 11.1 (10.0-19.0); CALCIUM 9.4 mg/dL (8.5-10.5); CREATININE 0.8 mg/dL (0.5-1.1); POTASSIUM 4.1 mMol/L (3.7-5.1); TOTAL BILIRUBIN 0.4 mg/dL (0.0-1.5); TOTAL PROTEIN 7.5 g/dL (6.0-8.4)
[2017-02-10] MEDS ORDERED: XALATAN2.5 ML OPHTH (13:41)
[2017-02-10] MEDS ORDERED: MOBIC15 MG PO (13:42)
[2017-02-10] MEDS ORDERED: NEURONTIN800 MG PO (13:42)
[2017-02-10] MEDS ORDERED: ALPHAGAN P5 ML OPHTH (13:43)
[2017-02-10] MEDS ORDERED: NORVASC2.5 MG PO (13:44)
[2017-02-10] MEDS ORDERED: COZAAR50 MG PO (13:44)
[2017-02-10] MEDS ORDERED: LOVASTATIN40 MG PO (13:45)
[2017-02-10] MEDS ORDERED: PRILOSEC20 MG PO (13:46)
[2017-02-10] MEDS ORDERED: GLUCOPHAGE500 MG PO (13:46)
[2017-02-10] MEDS ORDERED: ULTRAM50 MG PO (13:47)
[2017-02-10] MEDS ORDERED: NORCO 5-325 TA1 EACH PO (13:48)
[2017-02-10] MEDS ORDERED: FISH OIL 1,2001 EAC1 PO (13:48)
[2017-02-10] MEDS ORDERED: FLEXERIL10 MG PO (13:48)
[2017-02-10] MEDS ORDERED: LYRICA 50MG CAP50 MG PO (13:49)
[2017-02-10] MEDS ORDERED: CALCIUM500 MG PO (13:49)
[2017-02-10] MEDS ORDERED: VOLTAREN 1% GE100 GM TOP (13:49)
[2017-02-10] MEDS ORDERED: VITAMIN D1000 UNIT PO (13:50)
[2017-02-10] MEDS ORDERED: MAG-OX-400(241400 MG PO (13:50)
[2017-02-10] MEDS ORDERED: ZINCATE (50 MG220 MG PO (13:50)
[2017-02-10] MEDS ORDERED: POTASSIUM GLUC500 MG PO (13:51)
[2017-02-11 03:12] LABS: BASOPHIL # 0.1 K/uL (0.0-0.2); BASOPHIL % 0.3 %; EOSINOPHIL # 0.1 K/uL (0.0-0.5); EOSINOPHIL % 0.7 %; HEMATOCRIT 32.2 % (33.0-46.0); HEMOGLOBIN 10.6 g/dL (10.0-15.0); IMMATURE GRANULOCYTE % 0.3 %; LYMPHOCYTE # 1.5 K/uL (0.8-4.0); LYMPHOCYTE % 10.2 %; MCH 29.4 pg (27.0-34.0); MCHC 32.9 gm/dL (32.0-36.5); MCV 89.2 fl (83.0-98.0); MONOCYTE # 0.8 K/uL (0.0-1.0); MONOCYTE % 5.4 %; NEUTROPHIL % 83.1 %; NRBC % 0 /100WBC (0-0.00); PLATELET COUNT 243 K/uL (150-450); RBC 3.61 M/uL (3.50-5.50); RDW-CV 13.1 % (11.9-14.6); WBC 14.5 K/uL (4.0-11.0)
[2017-02-11 03:44] LABS: ALBUMIN 3.3 gm/dL (3.5-5.0); ANION GAP 12.5 (10.0-19.0); CALCIUM 8.1 mg/dL (8.5-10.5); CREATININE 0.7 mg/dL (0.5-1.1); POTASSIUM 3.5 mMol/L (3.7-5.1); TOTAL BILIRUBIN 0.3 mg/dL (0.0-1.5); TOTAL PROTEIN 6.4 g/dL (6.0-8.4)
[2017-02-11 21:16] LABS: BASOPHIL % 0.3 %; EOSINOPHIL # 0.1 K/uL (0.0-0.5); EOSINOPHIL % 0.4 %; HEMATOCRIT 34.8 % (33.0-46.0); HEMOGLOBIN 11.5 g/dL (10.0-15.0); IMMATURE GRANULOCYTE # 0.1 K/uL (0.0-0.3); IMMATURE GRANULOCYTE % 0.6 %; LYMPHOCYTE # 1.3 K/uL (0.8-4.0); LYMPHOCYTE % 9.6 %; MCH 29.6 pg (27.0-34.0); MCV 89.5 fl (83.0-98.0); MONOCYTE # 0.9 K/uL (0.0-1.0); MONOCYTE % 6.6 %; MPV 10.9 fl (9.4-12.4); NEUTROPHIL # (ANC) 11.3 K/uL (1.8-7.8); NEUTROPHIL % 82.5 %; NRBC % 0 /100WBC (0-0.00); PLATELET COUNT 231 K/uL (150-450); RBC 3.89 M/uL (3.50-5.50); RDW-CV 13.2 % (11.9-14.6); WBC 13.7 K/uL (4.0-11.0)
[2017-02-11 21:33] LABS: ALBUMIN 3.2 gm/dL (3.5-5.0); ANION GAP 13.8 (10.0-19.0); CREATININE 0.8 mg/dL (0.5-1.1); POTASSIUM 3.8 mMol/L (3.7-5.1); TOTAL BILIRUBIN 0.5 mg/dL (0.0-1.5); TOTAL PROTEIN 6.9 g/dL (6.0-8.4)
[2017-02-12 05:15] LABS: BASOPHIL % 0.3 %; EOSINOPHIL # 0.1 K/uL (0.0-0.5); EOSINOPHIL % 0.5 %; HEMOGLOBIN 11.1 g/dL (10.0-15.0); IMMATURE GRANULOCYTE # 0.1 K/uL (0.0-0.3); IMMATURE GRANULOCYTE % 0.6 %; LYMPHOCYTE # 0.9 K/uL (0.8-4.0); MCH 28.6 pg (27.0-34.0); MCHC 32.6 gm/dL (32.0-36.5); MCV 87.6 fl (83.0-98.0); MONOCYTE # 0.8 K/uL (0.0-1.0); MONOCYTE % 5.9 %; MPV 11.1 fl (9.4-12.4); NEUTROPHIL # (ANC) 11.4 K/uL (1.8-7.8); NEUTROPHIL % 85.7 %; NRBC % 0 /100WBC (0-0.00); PLATELET COUNT 224 K/uL (150-450); RBC 3.88 M/uL (3.50-5.50); RDW-CV 13.1 % (11.9-14.6); WBC 13.3 K/uL (4.0-11.0)
[2017-02-12 05:33] LABS: ALBUMIN 3.1 gm/dL (3.5-5.0); ANION GAP 12.1 (10.0-19.0); CALCIUM 8.9 mg/dL (8.5-10.5); CREATININE 0.7 mg/dL (0.5-1.1); POTASSIUM 3.1 mMol/L (3.7-5.1); TOTAL BILIRUBIN 0.6 mg/dL (0.0-1.5); TOTAL PROTEIN 6.9 g/dL (6.0-8.4)
[2017-02-13 05:18] LABS: BASOPHIL # 0.1 K/uL (0.0-0.2); BASOPHIL % 0.4 %; EOSINOPHIL # 0.2 K/uL (0.0-0.5); EOSINOPHIL % 1.7 %; HEMATOCRIT 33.2 % (33.0-46.0); HEMOGLOBIN 10.8 g/dL (10.0-15.0); IMMATURE GRANULOCYTE # 0.1 K/uL (0.0-0.3); IMMATURE GRANULOCYTE % 0.5 %; LYMPHOCYTE # 1.8 K/uL (0.8-4.0); LYMPHOCYTE % 16.5 %; MCHC 32.5 gm/dL (32.0-36.5); MCV 89.2 fl (83.0-98.0); MONOCYTE # 0.8 K/uL (0.0-1.0); MONOCYTE % 7.3 %; MPV 11.1 fl (9.4-12.4); NEUTROPHIL # (ANC) 8.2 K/uL (1.8-7.8); NEUTROPHIL % 73.6 %; NRBC % 0 /100WBC (0-0.00); PLATELET COUNT 242 K/uL (150-450); RBC 3.72 M/uL (3.50-5.50); RDW-CV 13.2 % (11.9-14.6); WBC 11.1 K/uL (4.0-11.0)
[2017-02-13 05:36] LABS: ALBUMIN 2.9 gm/dL (3.5-5.0); ANION GAP 10.6 (10.0-19.0); CALCIUM 9.3 mg/dL (8.5-10.5); POTASSIUM 3.6 mMol/L (3.7-5.1); TOTAL PROTEIN 6.8 g/dL (6.0-8.4)
[2017-02-13 05:45] LABS: TOTAL BILIRUBIN 0.4 mg/dL (0.0-1.5)
== END 2017-02-15 10:02 | DRG 25 ==
LOC: GACC 09:10 → GICU 11:46
PROVIDERS: Family Medicine; Neurological Surgery; ADMIT Internal Medicine
PROC: 00943ZZ Drainage of Intracranial Subdural Space, Percutaneous Approach (ICD-10-PCS; principal; 2017-02-10)
DX: S06.5X9A Traumatic subdural hemorrhage with loss of consciousness of unspecified duration, initial encounter (principal); G93.40 Encephalopathy, unspecified; I21.4 Non-ST elevation (NSTEMI) myocardial infarction; I16.1 Hypertensive emergency; D72.829 Elevated white blood cell count, unspecified; E11.42 Type 2 diabetes mellitus with diabetic polyneuropathy; E78.5 Hyperlipidemia, unspecified; F17.200 Nicotine dependence, unspecified, uncomplicated; H04.9 Disorder of lacrimal system, unspecified; I10 Essential (primary) hypertension; M48.02 Spinal stenosis, cervical region; M54.5 Low back pain; M54.9 Dorsalgia, unspecified; R53.1 Weakness; R74.8 Abnormal levels of other serum enzymes; W19.XXXA Unspecified fall, initial encounter; Z91.81 History of falling; Z88.5 Allergy status to narcotic agent; F17.210 Nicotine dependence, cigarettes, uncomplicated
CPT/HCPCS: J0360; J0690; J1630; J2001; J2060; J2765; J7030; J7040; P9045

== ENCOUNTER → 2017-02-10 | Outpatient (CLI) | payer MEDICARE, BC ==
[~2017-02-10] MED LIST: ALPHAGAN P5 ML OPHTH; CALCIUM500 MG PO; COZAAR50 MG PO; FISH OIL 1,2001 EAC1 PO; FLEXERIL10 MG PO; GLUCOPHAGE500 MG PO; LOPRESSOR25 MG PO; LOVASTATIN40 MG PO; LYRICA 50MG CAP50 MG PO; MAG-OX-400(241400 MG PO; MIRALAX17 GM PO; MOBIC15 MG PO; NEURONTIN800 MG PO; NICODERM / HABIT7 MG TRANS; NORCO 5-325 TA1 EACH PO; NORVASC2.5 MG PO; POTASSIUM GLUC500 MG PO; PRILOSEC20 MG PO; TYLENOL325 MG PO; ULTRAM50 MG PO; VITAMIN D1000 UNIT PO; VOLTAREN 1% GE100 GM TOP; XALATAN2.5 ML OPHTH; ZINCATE (50 MG220 MG PO
== END | disposition disaster alternative care site (69) ==
LOC: GAMB 00:38
DX: R26.89 Other abnormalities of gait and mobility (principal); I10 Essential (primary) hypertension; E11.9 Type 2 diabetes mellitus without complications; Z79.84 Long term (current) use of oral hypoglycemic drugs
CPT/HCPCS: A0425; A0429

== ENCOUNTER → 2017-02-10 | Outpatient (CLI) | payer MEDICARE, BC | END | disposition disaster alternative care site (69) | LOC: GAMB 09:00 | DX: R29.898 Other symptoms and signs involving the musculoskeletal system (principal); I10 Essential (primary) hypertension; E11.9 Type 2 diabetes mellitus without complications; R26.2 Difficulty in walking, not elsewhere classified; Z79.84 Long term (current) use of oral hypoglycemic drugs | CPT/HCPCS: A0425; A0429 ==

== ENCOUNTER 2017-02-15 10:37 | Inpatient (IN) | payer MEDICARE, BC ==
[~2017-02-15] VITALS: Ht 154.9 cm; Wt 59.9 kg
--- NOTE | ~2017-02-15 | CON ---
PATIENT'S NAME: DINORA MATIAS [facility] AGE: 81 Y [address] ROOM: [id number] [place], [place] [address] LOCATION: GIRP ADMIT DATE: 02/15/2017 Consultation DISCHARGE DATE: 02/24/2017 FAMILY PHYSICIAN: Coleman Yeh MD ATTENDING PHYSICIAN: Ajit Booth DATE OF CONSULTATION: 02/17/2017 REFERRING PHYSICIAN: Parth Fitzpatrick MD Team members reporting include Dr. Booth; Amrita Wang, social insurance analyst; inpatient rehab nursing staff; Whitley Don, PT; Sophy Gant, PT; Pretty Lazo, OT; Rebecca Ortiz, Speech Therapy; Cha Kraus, therapeutic rec; and Sister Violette Smith. CURRENT STATUS: Dinora is a 81-year-old woman, admitted to our inpatient rehab unit on February 15, 2017, following a fall in her home in which she hit her head and sustained a subdural hematoma. The patient did undergo right bur holes and drainage of the subdural hematoma on February 10, 2017. She has a history of osteoporosis, hypertension, diabetes type 2, glaucoma, dyslipidemia, peripheral neuropathy, and chronic low back pain. The patient is on a consistent carbohydrate diet. She can complete vdv-im-jrhqye transfers at standby, stwtio-ju-ido transfers contact guard assistance, kaa-re-mjfmz and axbpl-as-jkf transfers standby assistance; and yyh-wd-ptkvh and ffghg-ii-pxi transfers with standby assistance. She can walk 150 to 200 feet with a front-wheeled walker at standby assistance. If she ambulates with a four-wheeled walker, she is also standby assistance. She can climb 4 stairs with 2 railings at contact guard assistance. She can dress her upper body at standby; lower body, contact guard assistance; grooming, standby; bathing contact guard assistance; toilet transfers, contact guard assistance to standby assistance; toileting contact guard assistance to standby assistance; shower transfers, contact guard assistance; and feeding mod I. Her goals have been set for mod I. comprehension is currently at mod I. Language and expression, standby to mod I. She does occasionally have word finding problems. She does receive communion. Memory and problem solving are standby. The patient has been very open to pastoral care. DISCHARGE PLAN: The patient is receiving 3 hours of PT, OT, and Speech, Thursday through Thursday. The patient has daily rehab, nursing, and physiatry involvement as well as therapeutic recreational services. The patient has shown functional improvement and is progressing. Please see her plan of care for specific goals. Plan is for patient to discharge in approximately 1 week. The patient plans to return to home with her niece. PATIENT'S NAME: DINORA AMTIAS [facility] AGE: 81 Y [address] ROOM: [place] [address] LOCATION: [facility] ADMIT DATE: 02/15/2017 Consultation DISCHARGE DATE: 02/24/2017 FAMILY PHYSICIAN: Coleman Yeh MD ATTENDING PHYSICIAN: Ajit Booth AMRITAABNER WANG FOR AJIT BOOTH MD TD/modl /[id number] d: t: 03/05/17 2138, CONSULTATION REPORT
--- NOTE | ~2017-02-15 | HP ---
PATIENT'S NAME: CARINA MATIAS [facility] AGE: 81 Y [address] ROOM: [address] [place] [address] LOCATION: [facility] ADMIT DATE: 02/15/2017 History & Physical DISCHARGE DATE: FAMILY PHYSICIAN: Coleman Yeh MD ATTENDING PHYSICIAN: Ajit Booth DATE OF SERVICE: This 81-year-old is admitted to rehab unit on 02/15/2017 for continuous medical treatment and intensive rehabilitation. 1. Unstable gait number. 2. Dependent activities of daily and self-care. 3. At risk of falling. She is status post jon hole craniotomy and drainage of acute on chronic right subdural hematoma on 02/10/2017. Note, I saw this lady on initial consult on 02/11/2017 and recommended intensive rehabilitation, and on 02/15/2017 upon re-evaluation, I recommend intensive rehabilitation about 10-14 days aiming to discharge on modified independence. She is at the present time, admitted alert oriented. On admission, her vitals are as follows: Blood pressure 119/59, temperature 98.6, pulse 80, respirations 18. She is 5 feet 1 inch tall and weighs 53.8 kg. She is allergic to codeine and tramadol. She is feeling well at the present time and is able to comprehend, express, speak, swallow without difficulty. She is on the following medications. 1. Norvasc 10 mg p.o. daily. 2. Alphagan 0.25 ophthalmic one drop right eye twice daily. 3. Os-Wes D 500 mg p.o. twice daily. 4. Vitamin D 1000 units p.o. b.i.d. 5. Neurontin 800 mg p.o. daily at bedtime. 6. NovoLog insulin mild scale per protocol. 7. Xalatan 1 drop ophthalmic every evening at 2100 hours. 8. Zocor 100 mg p.o. daily. 9. Mevacor 40 mg p.o. at night at bedtime. 10. Magnesium oxide 400, give 400 mg p.o. twice daily. 11. Lopressor 25 mg p.o. b.i.d. 12. NicoDerm 20 mg, will follow about gradually decreasing the dose. 13. Protonix 40 mg p.o. daily. 14. MiraLAX 17 g p.o. twice daily. 15. Tylenol 650 q.6 hours, do not exceed acetaminophen 4 g q.24 hours. PATIENT'S NAME: CARINA MATIAS [facility] AGE: 81 Y [address] ROOM: [address] [place], [place] [address] LOCATION: [facility] ADMIT DATE: 02/15/2017 History & Physical DISCHARGE DATE: FAMILY PHYSICIAN: Coleman Yeh MD ATTENDING PHYSICIAN: Ajit Booth 16. Dextrose 50%, give 25 mL IV for hypoglycemia p.r.n. 17. Glucagon 1 mg subcu for hypoglycemia p.r.n. 18. Glucose 16 g p.o. for hypoglycemia p.r.n. 19. Dilaudid 2 to 4 mg p.o. q.4 hours p.r.n. PAST MEDICAL HISTORY: Past history of significance as follows: 1. History of hypertension. 2. Diabetes type 2. 3. Glaucoma. 4. Dyslipidemia. 5. Osteoporosis. 6. Peripheral neuropathy. 7. Chronic low back pain. We did send for lab works and they were as follows: Accu-Cheks in the morning 196 at 0729 hours, ranging between 372-162. CBC: White BC 8.8, RBC 3.70, hemoglobin 10.5, hematocrit 32.9, and platelets 299. CMS: Glucose 177. Sodium 139, potassium 4.2, chloride 107, CO2 26, BUN 18, creatinine 0.7. Urinalysis is rare bacteria and no complaint. Prealbumin 15. She will be put on intensive PT, OT, and Speech to follow also and 3 hours per week per day, 15 hours per week for the coming 10-14 days. We will keep on Dr. Fitzpatrick and hospitalist to follow as necessary. All the above was explained to her. She verbalized understanding and agreement with plan of care. AJIT BOOTH MD WMS/modl /[id number] D: [id number] T: 700 HISTORY & PHYSICAL
--- NOTE | ~2017-02-15 | DS ---
PATIENT'S NAME: CARINA MATIAS [facility] AGE: 81 Y [address] ROOM: [id number] [place], [place] [address] LOCATION: [facility] ADMIT DATE: 02/15/2017 Discharge Summary DISCHARGE DATE: 02/24/2017 FAMILY PHYSICIAN: Coleman Yeh MD ATTENDING PHYSICIAN: Ajit Booth This 81-year-old lady was admitted to Rehab Unit at [facility], [place], [place], on 02/15/2017 and is to be discharged to home on 02/24/2017. 1. She was admitted with unstable gait. 2. Dependent activities of daily self-care mostly weakness on the left-side. 3. Status post jon hole craniotomy and drainage of [id number] right subdural hematoma on 02/10/2017, details on record. She is doing well alert, oriented at the present time. Vitals are as follows: Blood pressure 146/80, temperature 97.8, pulse 90, and respirations 17. Her glucose is 182 today and ranging between 328 to 124 in 24 hours. CMS: Glucose is 138, potassium 4.6, chloride 105, CO2 26, BUN 21, creatinine 0.9, glucose 160, and her eGFR is 61. Prealbumin 22. She can ambulate 300 feet x2 at modified independence. She is not to drive and she will be on PT, OT, and Speech 2 to 3 times per week. Outpatient script is signed for her. She is on the following medications: 1. Norvasc 10 mg p.o. daily. 2. Alphagan 1 drop right eye ophthalmic twice daily. 3. Os-Wes calcium 500 mg p.o. twice daily. 4. Zinc sulfate 50 mg, give 220 mg p.o. b.i.d. 5. Potassium gluconate, 30 days. 6. Vitamin D3, 30 days. 7. Potassium gluconate 500 mg p.o. every morning. 8. Vitamin D3 1000 units p.o. b.i.d. 9. Neurontin 800 mg at night. 10. Lyrica 50 mg p.o. b.i.d. 11. Xalatan 1 drop every night at bedtime. 12. Cozaar 50 mg p.o. in the morning. 13. Lovastatin tablet 40 mg p.o. at night. 14. Mag oxide 400 mg 1 p.o. daily. PATIENT'S NAME: CARINA MATIAS [facility] AGE: 81 Y [address] ROOM: [id number] [place], [place] [address] [facility] ADMIT DATE: 02/15/2017 Discharge Summary DISCHARGE DATE: 02/24/2017 FAMILY PHYSICIAN: Coleman Yeh MD ATTENDING PHYSICIAN: Ajit Booth 15. Glucophage 500 mg p.o. twice daily. 16. Lopressor mg p.o. daily. 17. NicoDerm 7 mg topical daily for 2 weeks and then discontinue. 18. Prilosec 40 mg p.o. daily. 19. MiraLAX 17 g p.o. twice daily. 20. Tylenol 650 q.6 h., do not exceed acetaminophen 4 g q.24 h. 21. Mobic 7.5 mg p.o. twice daily. 22. Ultram 50 to 100 mg q.6 h. 23. [place] discontinued. 24. Flexeril has been given before. 25. [place] 1 capsule p.o. b.i.d. 26. Voltaren 1% gel, apply topical as needed. FINAL DIAGNOSES: 1. Status post right [id number]-niithak subdural hematoma, drained, details on record, with weakness and unstable gait, some confusion, dependent activities of daily self-care, now doing well. 2. Osteoporosis. 3. Hypertension. 4. Diabetes type 2. 5. Glaucoma. 6. Dyslipidemia. 7. Peripheral neuropathy. 8. Chronic low back pain. The patient should not drive until she is reevaluated and she should follow with her family physician as soon as possible. Follow with me in about 4 weeks. She has been given outpatient therapy, PT, OT, and Speech 2 to 3 times per week for the coming 4 weeks. Follow up with Dr. Fitzpatrick as he sees fit. All the above was explained to her in detail and all her questions answered. She verbalized understanding and agreement. AJIT BOOTH MD WMS/modl /[id number] d: 02/24/17149 t: 02/26/17708, DISCHARGE SUMMARY
[~2017-02-15 10:37] MED LIST changes: -LOPRESSOR25 MG PO; -MIRALAX17 GM PO; -NICODERM / HABIT7 MG TRANS; -TYLENOL325 MG PO
[2017-02-15 11:15] LABS: BILIRUBIN URINE NEGATIVE (NEGATIVE); BLOOD URINE NEGATIVE /UL (NEGATIVE); COLOR URINE YELLOW (YELLOW); GLUCOSE URINE 1000 mg/dL (NEGATIVE); KETONE URINE NEGATIVE (NEGATIVE); LEUKOCYTES URINE 500 /UL (NEGATIVE); NITRITE URINE NEGATIVE (NEGATIVE); PROTEIN URINE 30 mg/dL (NEGATIVE); SPEC GRAVITY URINE 1.005 (1.003-1.035); TURBIDITY URINE CLEAR (CLEAR); UROBILINOGEN URINE NORMAL (NORMAL)
[2017-02-15 11:21] LABS: RBC URINE NEGATIVE #/HPF (NEGATIVE)
[2017-02-15 11:22] LABS: BACTERIA URINE RARE (NEGATIVE)
--- NOTE | 2017-02-15 15:39 | NUR ---
Significant Event: Patient admitted to floor at 1015 from [facility]. Patient had a fall at home and then diagnosed with an acute on chronic subdural hematoma. She had surgery on 02/10 with a right sided jon hoe and drainage of acute on chronic subdural hematoma. Jes to right side of head intact. Ok to get head wet in the shower. will remove jes on 02/24/17. 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 Accuchecks with s/s insulin. Taking Tylenol for pain. 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 Saline lock. Patient is alert and oriented, but forgetful. Needs alarms. Follow up:
--- NOTE | 2017-02-16 04:21 | NUR ---
Significant Event:Up with one assist/walker, slightly unsteady. Alarms in place as is forgetful at times and doesn't know limitations. Difficulty with word finding at times. [place] intact to two areas on rt side of head, open to air. Saline lock to rt lower arm, flushes but no blood return. Denies pain, gave tylenol at hs per request to minimize discomfort when arising in a.m. 173/73 and 156/87--gave sheduled b/p med. BM on , voids x 4 with some stress incontinence. Talkative. Accucheck 308, given 6 u novolog--no hs snack given. Has pneumatics on legs at hs. Wears black left wrist support for carpal tunnel for comfort prn, placed on last night. Follow up:Please get order for her home eye drops of refresh prn dry eyes and use of Blue Emu topical gel prn for achiness in muscles--has both at bedside. Inquire from hospitalist regarding b/p sys goal. NO RIANNA HOSE per Dr Davidson' order.
[2017-02-16 05:56] LABS: BASOPHIL % 0.5 %; EOSINOPHIL # 0.3 K/uL (0.0-0.5); HEMATOCRIT 32.9 % (33.0-46.0); HEMOGLOBIN 10.5 g/dL (10.0-15.0); IMMATURE GRANULOCYTE % 0.5 %; LYMPHOCYTE # 1.9 K/uL (0.8-4.0); LYMPHOCYTE % 21.9 %; MCH 28.4 pg (27.0-34.0); MCHC 31.9 gm/dL (32.0-36.5); MCV 88.9 fl (83.0-98.0); MONOCYTE # 0.6 K/uL (0.0-1.0); MONOCYTE % 7.1 %; MPV 10.7 fl (9.4-12.4); NEUTROPHIL # (ANC) 5.9 K/uL (1.8-7.8); NRBC % 0 /100WBC (0-0.00); PLATELET COUNT 299 K/uL (150-450); RDW-CV 12.9 % (11.9-14.6); WBC 8.8 K/uL (4.0-11.0)
[2017-02-16 06:12] LABS: ALBUMIN 2.9 gm/dL (3.5-5.0); ANION GAP 10.2 (10.0-19.0); CALCIUM 9.1 mg/dL (8.5-10.5); CREATININE 0.7 mg/dL (0.5-1.1); POTASSIUM 4.2 mMol/L (3.7-5.1); TOTAL PROTEIN 6.8 g/dL (6.0-8.4)
[2017-02-16 06:13] LABS: TOTAL BILIRUBIN 0.3 mg/dL (0.0-1.5)
--- NOTE | 2017-02-16 17:04 | NUR ---
Significant Event: Patient alert and oriented. Up with 1 assist. Camille to head intact. Accuchecks with s/s insulin. Has eye drops and analegsic gel at bedside per new order. Has carpel tunnel and wears a wrist brace at night. New orders today. Restarted Glucophage and increased lopressor. Follow up:
--- NOTE | 2017-02-17 03:26 | NUR ---
Significant Event:A/O. Talkative. TRansfer 1 assist w/ Gaitbelt and walker. Camille to right side of head intact and open to air. Nicotene patch to Left shoulder, decrease to 14mg/day starting todays dose. Lopressor increased to 37.5mg BID with parameters, started yesterday. ACHS accuchecks with sliding scale. HS accucheck 200, no sliding scale required. Glucophage restarted yesterday. Wrist brace to left wrist at night. Calf pump pneumatics ONLY for DVT ppx, at this time per Dr. Fitzpatrick. Wears bridge, currently in container in bathroom. Tylenol at HS for mild discomfort to shoulder and lower back. Uses call light appropriately. Bed alarm on. Follow up:Frequent small stools, soft and mushy. continue with therapies.
--- NOTE | 2017-02-17 08:33 | NUR ---
D: Therapeutic Recreation Initial Assessment on the 02/17/17. I: Patient seen for 2 units at 833 to begin initial evaluation. R: Patient's current living situation and status: house in town Home entrance steps: 3 with railings Living with: niece Spouses name: single # of children: 0 Driving: yes, family can provide transportation Ambulating: I Equipment: N/A Hand Dominance: Right Acds Block 1 Operator strength: N/T Eye sight: glasses Reading ability: prefers large print Hearing: slight CHITIM[place]HA Speech: clear Cognition: alert Comprehension: good Following directions: yes Initiating: yes Eye contact: good Affect: bright COMMUNITY INVOLVEMENT: grocery shopping, occ. 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 Information obtained: Interview, Chart Review, Observation, other. BARRIERS TO LEISURE: Physical, Lifestyle (tobacco use daily) Transportation Patient determined to be: APPROPRIATE FOR THERAPEUTIC RECREATION ASSESSMENT. TREATMENT WILL INCLUDE: Community living skills training Functional leisure development Physical skills development Social skills development Leisure education Family education Community resources/packet TARGET EQUIPMENT/INFORMATION: Parking Permit HAS IN PLACE Community Resources Energy conservation in community setting Van/Service/Taxi Scrip Adapted Leisure Equipment Stress management/Relaxation techniques Functional car transfers Leisure Education Behaviors: Attitude, Awareness, Participation. Patient functional skills level and potential: Good, pt demonstrates fair mobility with concerns for coping and adjustment. Patient oriented ot TR services on Rehab unit. Pt/family provided input into goals setting and plan of care. Pt's goal to return home. P: Target date set with personal goals established. Will continue with POC focusing on pt/family training and education. For additional information please see Nursing Data Base, PT, OT, CM, ST, initial assessments to [facility] and Interdisciplinary Assessments.
--- NOTE | 2017-02-17 13:12 | NUR ---
Significant Event: Pt up in room and silva with FWW, SBA, farooq. well. Moderate strength x 4 extremities. Denies any dizziness when up. Took tylenol at 0808 for post neck pain. [place] to rt head intact, incision approximated. Pt takes meds well with water. Alarms in use, pt spontaneous at times. Calf pumps only for DVT PPX, no cyndy hose per MD order. Accuchecks 172, 200, no sliding scale needed. Pt very pleasant and cooperative with cares. Follow up: activity, safety, pain management, Dr Fitzpatrick wants a call after team meeting with update on discharge plans.
--- NOTE | 2017-02-18 05:03 | NUR ---
Alert and oriented x 3. Up with one assist, gaitbelt and walker. Took Tylenol at hs for neck and left shoulder pain. Camille intact to surgical incision site on rt side of head. HS accucheck= 189. Calf pumps on at night, no cyndy hoes per DRs order for hx of DVTs. Slept well between voidings.
--- NOTE | 2017-02-18 11:52 | NUR ---
D: TR progress note for 02/18/17. I: Pt seen for 2 units at 1100 for community integration skills building, safety awareness and functional transfers R: Pt seen for functional skills building working on community integration skills, safety and mobility to increase independence with community re-entry in anticipation for discharge back into community with family. Education and review done on energy conservation in community setting, safety with hand hygiene in community setting and with inclement weather (hot/cold). Discussed use of bathroom when out with opposite sex and no unisex bathroom available and reviewed concerns with handicapped accessible surfaces/buildings. Pt transferred sit > stand from recliner SBA, pivoted to from WC with walker SBA and transferred in/out of WC SBA with good safety awareness. P: Will continue to see to address goals and plan of care.
--- NOTE | 2017-02-18 16:11 | NUR ---
Significant Event:PATIENT ALERT AND ORIENTED THIS SHIFT. VSS. TRANSFERS WITH 1 ASSIST, GAIT BELT AND WALKER. IS STEADY WHEN AMBULATING. HEAD HAS 2 SMALL INCISIONS WITH REBECA INTACT. DENIED PAIN THIS AM BUT LATER HAD NECK AND SHOULDER PAIN. GIVEN TYLENOL AT 1211. SALINE LOCK WAS PAINFUL AND NO SPECIFIC ORDER WAS IN PLACE SO IT WAS DC'D WITH CATH INTACT. UP IN CHAIR WHEN NOT IN THERAPY. NO OTHER COMPLAINTS. Follow up:
--- NOTE | 2017-02-19 04:18 | NUR ---
Significant Event:Up with one assist/walker, occasionally does lose balance. Needs alarms as may get up on her own. C/o sore posterior neck/left shoulder--applied blue emu cream x 1 at hs, effective. Also took tylenol at bedtime for the same that she rated at a 4. Hs accucheck 256, given 4 units per sliding scale. Refused hs snack. C/o cramping to lower rt leg at 0030, applied blue emu cream and walked in hallway which relieved pain. DNR. BM x 2, voids x 5.Stapled areas to rt side of head approx, open to air, no drainage. Follow up:Monitor jes--Dr Fitzpatrick to remove on 02-24. Use only pneumatics NO cyndy compression socks. Use of alarms for safety.
--- NOTE | 2017-02-19 13:00 | NUR ---
Significant Event: Alert and oriented x 3. Up with 1A walker and gait belt. Tylenol given at 0819. Incisions to head open to air. Camille intact. Accuchecks ACHS. 353 at lunch so 8 units given. Continent of bowel and bladder. Cooperative with cares. Use pneumatics. Do not use cyndy hose. Follow up:
--- NOTE | 2017-02-20 04:12 | NUR ---
Significant Event: A&Ox3, BP: 160/80 before HS BP meds given. HR: 90, 99.8 temp, 07% on room air. [place] to head intact and open to air. Moves all extremities equally. Transfers with SBA walker/GB. ACHS milding sliding scale. No coveraged needed at HS. Takes pills whole with water. Follow up:
--- NOTE | 2017-02-20 12:03 | NUR ---
Significant Event:Alert and orientated x 3 expresses needs well. Transfers with 1 assist/gait belt and walker. Head incision open to air, jes intact. Accuchecks WNL. TAkes meds whole with water. No pneumatics, only RIANNA hose. Continent of bowel and bladder, held Miralax per request. Pt has been pleasant and cooperative with plan of care. Follow up:Accuchecks ACk/HS, pain control.
--- NOTE | 2017-02-20 12:47 | NUR ---
D: TR progress note for 02/20/17. I: Pt seen for 2 units at 1031 for community integration skills building, functional transfers, and safety awareness. R: Pt seen for functional skills building working on mobility, safety, functional transfers and community skills in anticipation for discharge back into community with family. Pt transferred sit > stand from recliner SBA, ambulated to/from bathroom 10 feet with 4WW SBA, SBA > mod I for toilet transfers, clothing management and hand hygine, transferred into WC SBA for cues for locking brakes. Pt transferred sit > stand from WC SBA, ambulated to/from vehicle 5 feet with 4WW SBA and transferred in/out of vehicle SBA with cues for hand placement. Pt was mod I for BLE management and positioning of self with seat surface adapted using cushion and trash bag to ease task. Pt tolerated ride with no C/o pain, discomfort or problems with nausea, independent with providing directions for pathfinding to home. P: Will continue to see to address goals and plan of care.
--- NOTE | 2017-02-20 14:18 | NUR ---
PT SCREENED D/T LOS. EST NEEDS: [id number] KCALS, 60-85 GM PROTEIN, 1 ML/KCAL FLUIDS. INTAKE USUALLY 100% ON DB DIET. WT STABLE, BMI WNL. NO NUTRITION-RELATED DIAGNOSIS IDENTIFIED. WILL ASSIST NEEDED.
--- NOTE | 2017-02-20 15:29 | NUR ---
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 Hurtado, Amrita YUENW R: Reason for admission: fall with right sided subdural hematoma. Right jon holes and drainage subdural hematoma. Admission Date to [facility]: 02/15/17 Admission Date to Hospital: 02/10/17 Prior level of functioning: patient was independent with adl's and household prior to fall Prior living situation: one story house with basement. Financial resources/expectations: patient has Medicare and BC/BS. Resources used: walk-in shower, highrise toilet, cane Resources available: HHC, outpatient therapy, SNF, [facility], [facility], DME. Family support available: niece, sister Understands nature of health condition: yes Recognizes impact of health condition on lifestyle: yes Vocational/Educational: retired Behavior/Emotional needs: cues for safety. MOnitor for signs and symptoms of depression and anxiety. Legal concerns: none. Discharge goal: home with support. Assessment: Dinora is a 81 year old woman from [place], [place] admitted after a fall with a right sided subdural hematoma. She has good family support. Team conference was held and plan is for patient to d/c in approx. 1 week. Will follow and assist as needed. Orientation to the program and CM services completed with Dinora. Initial plan of care and estimated length of stay discussed, disclosure statement reviewed including patient assessment rights. P: Target date and individual goals established. Please see POC for details. For additional information please see Nursing Data Base, PT, OT, TR, ST, Initial assessments to [facility].
--- NOTE | 2017-02-21 02:41 | NUR ---
Significant Event: Patient is alert and oriented can be forgetful. VSS, alittle hypertensive. Up one SBA with GB/Walker. Gait is steady. Has denied pain t/o the shift. 2 incisions to the right side of her head with jes intact. [place] to be removed on the 5th. Nicotine patch to her right shoulder. Accu checks AC&HS. Last night BS was 240. Has been refusing her Miralax due to loose stools. Very talkative and pleasant. Follow up:
--- NOTE | 2017-02-21 15:14 | NUR ---
Significant Event:PATIENT ALERT AND ORIENTED THIS SHIFT. VSS. TRANSFERS WITH 1 SBA, GAIT BELT AND WALKER. COMPLAINS OF NECK PAIN AT TIMES. TAKES TYLENOL NEEDED. LAST DOSE GIVEN AT 1320 THIS AFTERNOON. HELPS FOR A LITTLE WHILE. DID NOT HAVE ANY THERAPIES TODAY. COMPLAINS OF BEING BORED. WILL HAVE SOME THERAPIES TOMORROW. NO OTHER COMPLAINTS. Follow up:
--- NOTE | 2017-02-22 02:18 | NUR ---
Significant Event: Patient is alert and oreinted. Is hypertensive. Able to do her own ADL's. Very pleasant and talkative. Up one SBA with GB/Walker. Has been c/o of neck pain was given some Tylenol and her neck rubbed with EMU cream at bedtime. She was also given an Aqua K pad. Accu checks AC& HS. Last night was 175 no coverage needed. Follow up: Home next week.
--- NOTE | 2017-02-22 15:44 | NUR ---
Significant Event:PATIENT ALERT AND ORIENTED THIS SHIFT. VSS. TRANSFERS INDEPENDANTLY IN ROOM NOW. UP WITH 1 ASSIST, GAIT BELT AND WALKER IN THE HALLS. ACCUCHECK AT BREAKFAST DID NOT REQUIRE ANY SLIDING SCALE BUT LUNCH BS WAS 328 AND RECEIVED 6 UNITS OF SLIDING SCALE. DR. MCCALL HERE AT LUNCH AND REMOVED REBECA FROM HER HEAD. TOLERATED WELL. PLAN IS TO GO HOME ON THURSDAY. IS VERY EXCITED. NO OTHER COMPLAINTS. Follow up:
--- NOTE | 2017-02-23 04:13 | NUR ---
Significant Event:A/O. Conversational. Ad agus in room. [place] removed form surgial site, well approximated and heal. Tylenol for pain as needed. Kinesio tape to right knee for conmfort. VSS. CAll light in reach bed alarm on. Tylenol at 2230.
[2017-02-23 06:16] LABS: ALBUMIN 3.1 gm/dL (3.5-5.0); ANION GAP 11.6 (10.0-19.0); CALCIUM 9.7 mg/dL (8.5-10.5); CREATININE 0.9 mg/dL (0.5-1.1); POTASSIUM 4.6 mMol/L (3.7-5.1); TOTAL PROTEIN 6.8 g/dL (6.0-8.4)
[2017-02-23 06:17] LABS: TOTAL BILIRUBIN 0.2 mg/dL (0.0-1.5)
[2017-02-23] MEDS ORDERED: NICODERM / HABIT7 MG TRANS (11:48)
[2017-02-23] MEDS ORDERED: LOPRESSOR25 MG PO (11:48)
[2017-02-23] MEDS ORDERED: MIRALAX17 GM PO (11:49)
[2017-02-23] MEDS ORDERED: TYLENOL325 MG PO (12:18)
--- NOTE | 2017-02-23 13:48 | NUR ---
Significant Event: PATIENT UP AD NEVA IN ROOM. VITALS STABLE ON ROOM AIR. ALERT AND ORIENTED X3. DENIES PAIN. INCISION APPROXIMATED TO HEAD, REBECA WERE REMOVED YESTERDAY. SHOWERED WITH THERAPY TODAY. CALLS APPROPRIATELY. CONTINENT OF BOWEL AND BLADDER. MEDS WHOLE WITH WATER. FEEDS SELF WELL. ACHS ACCUCHECKS, HAS NOT NEEDED SLIDING SCALE TODAY. HOME TOMORROW. Follow up:
--- NOTE | 2017-02-24 05:18 | NUR ---
Significant Event:Mod I in room, steady on feet with use of walker. Refused hs miralax as stated she has had 3 loose stools on Thursday. Gave Tylenol at hs, denies pain but likes to have med to stay ahead of discomforts when arising in the a.m. Hs accucheck 288, given 4 units per sliding scale. No hs snack given as had refused. Incisions x 2 to right side of head healing, open to air, jes have been removed. 145/59. Adequate oral intake/voids without difficulty. Pneumatics on at hs. Follow up:Mod I in room, Home today, NO cyndy hose per dr order.
--- NOTE | 2017-02-24 14:37 | NUR ---
Significant Event: Patient alert and oriented. Up ad agus in room. Taking tylenol for pain. Accuchecks with s/s insulin. Patient will not go home on sub-q insulin. Patient is taking oral metformin at home. Incision to head is approximated. [place] were removed by MD yesterday. Patient going home today. Follow up:
--- NOTE | 2017-03-05 12:01 | NUR ---
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 Will have outpatient therapy. Therapy Recommendation: see therapy notes. Equipment Recommendations: see therapy notes. Financial Resources Used: patient has Medicare and BC/BS. Other referrals: referral for [facility]. Patient/Family education completed: prior to d/c. Patient/Family preference: in agreement. Plan of Care and Goal summary: met all CM d/c goals. P: Complete follow up within one week: call patient one week post d/c to see how she is doing.
== END 2017-02-24 11:40 | disposition disaster alternative care site (69) | DRG 946 ==
LOC: GIRP 10:37
PROVIDERS: ADMIT Physical Medicine & Rehabilitation
PROC: F07Z9FZ Gait Training/Functional Ambulation Treatment using Assistive, Adaptive, Supportive or Protective Equipment (ICD-10-PCS; principal; 2017-02-15)
DX: S06.5X9D Traumatic subdural hemorrhage with loss of consciousness of unspecified duration, subsequent encounter (principal); E11.9 Type 2 diabetes mellitus without complications; M48.02 Spinal stenosis, cervical region; R26.81 Unsteadiness on feet; Z74.2 Need for assistance at home and no other household member able to render care; Z74.1 Need for assistance with personal care; E78.5 Hyperlipidemia, unspecified; Z72.0 Tobacco use